=== PATIENT | female | born 1985 | race Caucasian/White ===

== ENCOUNTER 2024-12-02 18:40 | Emergency (ER) | payer OTHER, SELFPAY ==
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
[2024-12-02 18:47] VITALS: BP 129/75; PULSE 74; RESP 18; TEMP 36.1; O2SAT 99; BMI 40.3
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
--- OUTSIDE RECORDS SUMMARY | 2024-12-02 22:50 | XMS_ITS | Clinical Summary ---
Author Organization [facility] Address [address] [place] [address] Care Team Providers Care Conservation Engineer Name Role Phone Katrina Guzman Primary Care Provider [phone] Source Comments PLEASE NOTE, if this patient is a minor, it may be UNLAWFUL to discuss sensitive information that is contained in these records (such as FAMILY PLANNING, MENTAL HEALTH or SUBSTANCE ABUSE) with the minor patient's parent or other person without the patient's specific authorization.[facility] Allergies Active Allergy Reactions Criticality Noted Date Comments Mushroom Hives Medications beclomethasone (QVAR) 80 mcg/actuation inhalerIndications :ASTHMA MODERATE PERSISTENT Inhale 1 Puff into the lungs 2 (two) times daily. 1 Inhaler 2 05/06/20 13 Active theophylline (THEODUR) 300 mg 12 hr tabletIndications: ASTHMA MODERATE PERSISTENT Take 1 Tab by mouth every 12 (twelve) hours. Swallow whole. Do not crush or chew. 60 Tab 1 07/12/20 13 Active albuterol sulfate hfa (PROVENTIL,VENTOLI N,PROAIR) 90 mcg/actuation inhalerIndications :ASTHMA MODERATE PERSISTENT Inhale 2 Puffs into the lungs every 4 (four) hours as needed for shortness of breath or wheezing. 1 Inhaler 3 07/12/20 13 Active albuterol (ACCUNEB) 0.63 mg/3 mL nebulizer solutionIndication s:ASTHMA MODERATE PERSISTENT Take 3 mL by nebulization every 6 (six) hours as needed for wheezing. 30 Vial 4 07/12/20 13 Active nebulizer accessoriesIndicat ions:ASTHMA MODERATE PERSISTENT Dx. Asthma 493.90 1 Device 0 07/12/20 13 Active nebulizerIndicatio ns:ASTHMA MODERATE PERSISTENT Dx. Asthma 493.90 1 Each 0 07/12/20 13 Active nitrofurantoin, macrocrystal-monoh ydrate, (MACROBID) 100 mg capsuleIndications :UTI (lower urinary tract infection) Take 1 Cap by mouth 2 (two) times daily. 14 Cap 0 09/13/19 14 Active loratadine (CLARITIN) 10 mg tabletIndications: Seasonal allergic reaction Take 1 Tab by mouth once daily as needed for allergies. 30 Tab 2 10/12/19 14 Active fluticasone (FLONASE) 50 mcg/actuation nasal sprayIndications:A llergic rhinitis, seasonal Place 1 [place] into the nostril(s) once daily. 16 g 2 10/12/19 14 Active hydrOXYzine (ATARAX) 10 mg tabletIndications: Seasonal allergic reaction Take 1 Tab by mouth 3 (three) times daily as needed for itching. 90 Tab 2 10/12/19 14 Active olopatadine (PATANOL) 0.1 % ophthalmic solutionIndication s:Allergic conjunctivitis Place 1 Drop into both eyes 2 (two) times daily. 5 mL 2 10/12/19 14 Active metroNIDAZOLE (FLAGYL) 500 mg tabletIndications: Bacterial vaginitis Take 1 Tab by mouth 2 (two) times daily. Avoid alcohol while taking and for 72 hours following last dose. 14 Tab 0 11/16/19 14 Active Active Problems Problem Noted Date Diagnosed Date PTSD (post-traumatic stress disorder) 09/14/2013 Bipolar 2 disorder ([facility]) 05/27/2013 Nonepileptic episode: psychogenic seizure 2012 ASTHMA MODERATE PERSISTENT Allergic rhinitis, seasonal Obesity Resolved Problems Problem Noted Date Diagnosed Date Resolved Date Seizure disorder ([facility]) 02/08/2013 0 09/14/2013 Overview (09/14/2013): Found out to be psychogenic, not actual epileptic seizures Bipolar disorder ([facility]) 02/08/2013 0 09/14/2013 Immunizations Immunization Administration Dates Next Due Hep A, adult 10/27/2011 Hep B, Adult/Adol (ENERGIX/RECOMBIVAX) 2 INFLUENZA, SEASONAL, INJECTABLE 05/06/2013 PPD 05/27/2013,05/06/2013 Family History Medical History Relation Name Comments Diabetes Maternal Aunt Heart Problems Maternal Grandfather Cancer Mother leukemia Hypertension Paternal Grandfather Relation Name Status Comments Maternal Aunt Maternal Grandfather Mother Alive Paternal Grandfather Social History Tobacco Use Types Packs/Day Years Used Date Smoking Tobacco: Never Smokeless Tobacco: Never Alcohol Use Standard Drinks/Week Comments No 0 (1 standard drink = 0.6 oz pur e alcohol) Social Connections Answer Date Recorded Connectedness 0 05/06/2024 Financial Resource Strain Answer Date R ecorded Financial Resource Strain 0 2023 Stress Answer Date Recorded Stress 0 05/06/2024 Physical Activity Answer Date Recorded Physical Activity 0 05/06/2024 Food Insecurity Answer Date Recorded Food 0 05/06/2024 Transportation Needs Answer Date Record ed Transportation 0 05/06/2024 Housing Stability Answer Date Recorded Housing 0 05/06/2024 Safety and Environment Answer Date Og rded Safety 0 05/06/2024 Utilities Answer Date Recorded Utilities 0 05/06/2024 Employment Answer Date Recorded Stress 0 05/06/2024 Comments No Sex and Gender Information Value Date Recorded Sex Assigned at Not on file Legal Sex Female 11:36 AM PDT Gender Identity Not on file Sexual Orientation Not on file Last Filed Vital Signs Vital Sign Reading Time Taken Comments Blood Pressure 110/80 11/11/2013 1:15 PM EDT Pulse 73 05/07/2024 1:50 AM EDT Temperature 36.1 ??C (97 ??F) 05/07/2024 1:50 AM EDT Respiratory Rate 16 11/11/2013 1:15 PM EDT Oxygen Saturation 98% 05/07/2024 1:50 AM EDT Inhaled Oxygen Concentration - - Weight 90.3 kg (199 lb) 11/11/2013 1:15 PM EDT Height 157.5 cm (5' 2 ) 11/11/2013 1:15 PM EDT Body Mass Index 36.4 11/11/2013 1:15 PM EDT Plan of Treatment Health Maintenance Due Date Last Done Comments Anxiety Screening 1983 Diabetes Screening 1983 HPV Screening 1983 Hepatitis C Screening 1983 Lipid Screening 1983 Pap + HPV 1983 STI Counseling 1983 Tobacco Screening 1983 Relationship Safety Screening/Counseling 1998 Imm-DTaP/Tdap/Td (1 - Tdap) 2002 Imm-Hepatitis B (2 of 3 - 19 + 3-dose series) 11/24/2011 10/27/2011 Cervical Cancer Screening 09/12/2013 Pap Smear 09/12/2013 09/12/2010, 08/01/2009 Hypertension Screening (#1) 11/11/2014 Breast Cancer Screening (Mammogram) 2023 [id number] ( season) 2024 Imm-Influenza (#1) 2024 08/06/2022, 0 04/23/2020, 05/06/2013 Alcohol and Drug Screen 08/03/2024 Depression Annual Screen 08/03/2024 HIV Screening Completed 05/07/2024, 09/14/2013 Cervical Ablation/Cold-Knife Conization Discontinued Cervical Cryotherapy Discontinued Colposcopy Discontinued Endometrial Biopsy Discontinued Excision/Leep Discontinued HPV Genotyping Discontinued Vaginal Pap Discontinued Vulvoscopy Discontinued Procedures Procedure Name Priority Date/Time Associated Diagnosis Comments HIV 1/2 AG/AB COMBO Routine 05/07/2024 from Last 3 Months or Most Recently Relevant to Health Maintenance Results * HIV 1/2 AG/AB COMBO (05/07/2024) HIV-1/HIV-2 Ag/Ab HIV-1/2 Non-react cornelio [facility] Comment: The HIV Antigen (Ag)/Antibody (Ab) Combo Chemiluminescent Microparticle Immunoassay (CMIA) is used for the simultaneous detection of both the HIV-1 p24 Antigen and Antibody to HIV-1 and for the Antibody to HIV-2. 05/07/2024 05/10/2024 Elijah Meyer MD LAB - BLOOD DRAW Final Result [facility] [id number] [facility] [address] [place] [address], [place] [phone] from Last 3 Months or Most Recently Relevant to Health Maintenance Insurance [facility] PL[employer] Member Subscriber Plan / Payer (Ef fective 2013-Present) Name:Jessica Baldwin Relation to Subscriber:Self Name:Jessica Baldwin Payer ID:[id number] Group ID:[id number] Type:Medicaid Address: [facility] [address] [place] [address] Care Teams Conservation Engineer Relationship Specialty Start Date End Date Katrina Guzman PA [address] [place] [address] PCP - General 05/27/13
--- OUTSIDE RECORDS SUMMARY | 2024-12-02 22:50 | XMS_ITS | Clinical Summary ---
Author Organization [facility] Address [address] [place] [address] Care Team Providers Care Guard Immigration Name Role Phone Coleen Sidhu MD Primary Care Provider Social History Tobacco Use Types Packs/Day Years Used Date Smoking Tobacco: Never Assessed Comments Unknown Sex and Gender Information Value Date Recorded Sex Assigned at Not on file Legal Sex Female 4:12 PM EDT Gender Identity Not on file Sexual Orientation Not on file Plan of Treatment Upcoming Encounters Date Type Department Care Team (Late st Contact Info) Description 06/20/2025 11:00 AM EST Office Visit Adult Medicine [facility] [address] [place] [address] Coleen Sidhu MD [address] [place] [address] Health Maintenance Due Date Last Done Comments Breast Cancer Screening 1983 DTaP,Tdap,and Td Vaccines (1 - Tdap) 2002 Hepatitis B Vaccines (1 of 3 - 19+ 3-dose series) 2002 Cervical Cancer Screening: P ap Smear 2004 COVID-19 Vaccine ( - 2023-2 5 season) 2024 Depression Screening 10/21/2024 HIV Screening 10/21/2024 Hepatitis C Screening 10/21/2024 Social Influencers of Health Screening 10/21/2024 Influenza Vaccine (Season Ended) 2025 HIB Vaccines Aged Out No longer eligi ble based on patient's age to complete this topic HPV Vaccines Aged Out No longer eligi ble based on patient's age to complete this topic Hepatitis A Vaccines Aged Out No long er eligible based on patient's age to complete this topic IPV Vaccines Aged Out No longer eligi ble based on patient's age to complete this topic MMR Vaccines Aged Out No longer eligi ble based on patient's age to complete this topic Meningococcal ACWY Vaccine Aged Out N o longer eligible based on patient's age to complete this topic Meningococcal B Vaccine Aged Out No l onger eligible based on patient's age to complete this topic Pneumococcal Vaccine: Pediat rics (0 to 5 Years) and At-Risk Patients (6 to 64 Years) Aged Out No longer eligible b ased on patient's age to complete this topic RSV Immunization Patients Un daniel 20 months Aged Out No longer eligible b ased on patient's age to complete this topic Varicella Vaccines Aged Out No longer eligible based on patient's age to complete this topic [place] [address] [place] [address] PLAN Care Teams Guard Immigration Relationship Specialty Start Date End Date Coleen Sidhu MD [address] [place] [address] PCP - General Internal Medicine 10/06/24
[2024-12-02] MEDS: Tetracaine HCl/PF 0.5% Oph Sol 4 ML DROPS 1 DROP EYE-LEFT (23:33)
[2024-12-02] MEDS: Fluorescein Sodium STRIP 1 STRIP EYE-LEFT (23:33)
[2024-12-02 23:41] VITALS: BP 138/83; PULSE 56; RESP 16; TEMP 36.6; O2SAT 98
--- NOTE | 2024-12-02 23:54 | PC.NURSE ---
Provider to [facility] 2 for assessment.
[2024-12-03] MEDS: Acetaminophen 325 MG TABLET 650 MG PO (00:42)
[2024-12-03 00:51] VITALS: BP 138/83; PULSE 56; RESP 16; TEMP 36.6; O2SAT 98
== END 2024-12-03 00:51 | disposition home or self-care (01) ==
PROVIDERS: Emergency Provider Emergency Medicine
DX: S00.12XA Contusion of left eyelid and periocular area, initial encounter (principal); Y00.XXXA Assault by blunt object, initial encounter; Y93.89 Activity, other specified; Y92.9 Unspecified place or not applicable; Y99.9 Unspecified external cause status
CPT/HCPCS: 70450; 70486; 99284

== ENCOUNTER → 2024-12-02 18:48 | Outpatient (BNV) | payer OTHER, SELFPAY | PROVIDERS: Visit Provider Radiology Diagnostic Radiology | DX: H57.12 Ocular pain, left eye (principal); H05.222 Edema of left orbit; S09.90XA Unspecified injury of head, initial encounter; R11.0 Nausea | CPT/HCPCS: 70450; 70486 ==

== ENCOUNTER 2025-01-07 13:05 | Emergency (ER) | payer OTHER, SELFPAY ==
[2025-01-07 13:51] VITALS: BP 125/85; PULSE 59; RESP 18; TEMP 36.6; O2SAT 100; BMI 40.4
--- NOTE | 2025-01-07 13:51 | ED_ITS ---
HPI - Dental/Oral General Chief complaint: Dental/Oral Stated complaint: dental pain into ear and back of neck Time Seen by Provider: 01/07/25 13:57 Source: patient, RN notes reviewed and old records reviewed Mode of arrival: ambulatory History of Present Illness ED Provider: Lucila Damico PA-C HPI Narrative: 39-year-old female with no significant past medical history dental filling 2 months ago presenting to the ED complaining of right-sided dental pain/facial swelling x 2 weeks. denies drainage, difficulty/inability to swallow, fever, chills. Related Data Previous Rx's ?Medication ?Instructions ?Recorded amoxicillin 875 mg-potassium 1 tab PO BID 7 days #14 tabs 01/07/25 clavulanate 125 mg tablet Allergies Allergy/AdvReac Type Severity Reaction Status Date / Time mushroom Allergy Rash Verified 01/07/25 13:53 Review of Systems Review of Systems: Yes all other systems are reviewed and are negative Constitutional: Constitutional: Reports as per [facility] Past Medical History Attestation statement: The following information was validated with the patient. Source: old records reviewed Social History Social History Advance Directives: No Advance Directives Information Provided: No Physical Exam Vital Signs: Vital Signs: Last Vital Signs Temp 97.8 F 01/07/25 14:28 Pulse 59 01/07/25 14:28 Resp 18 01/07/25 14:28 BP 125/85 01/07/25 14:28 Pulse Ox 100 01/07/25 14:28 O2 Del Method Room Air 01/07/25 14:28 BMI result Body Mass Index 40.4 Const: General: cooperative, healthy appearing and no acute distress Orientation/consciousness: patient oriented x3 Limitations: no limitations HEENT: Other: Mild right-sided facial swelling. Right upper bicuspid and 1st molar with mild gingival tenderness. No gingival erythema/swelling. No fluctuance/induration. Head: Yes normal to inspection and Yes atraumatic Ears: hearing grossly normal bilaterally, external ears normal, TM's normal bilaterally and mastoids normal General nose exam: Normal external nose present Face and sinus: Yes normal facial exam Mouth: no drooling Throat: Yes posterior oropharynx normal, Yes tonsils normal, Yes uvula midline, No peritonsillar mass, No uvula laterally displaced and No uvular edema Eyes: General: appearance normal, both eyes and all related structures EOM: EOMs intact bilaterally Neck: Neck: Yes normal visual inspection and Yes no meningeal signs Resp: Effort & Inspection: normal respiratory effort, no respiratory distress and no stridor Cardio: Rate: regular rate Skin: Rashes: no rashes Wounds: no wounds Neuro: General: patient oriented x3, tone normal and no meningeal signs Cranial nerves: Yes CN's II-XII intact bilaterally Gait exam (Neuro): Normal gait present Extrem: General: Yes normal to inspection Medical Decision Making Medical Decision Making MDM Narrative: 39-year-old female with no significant past medical history dental filling 2 months ago presenting to the ED complaining of right-sided dental pain/facial swelling x 2 weeks. On exam vital signs stable, NAD, nontoxic appearing, physical exam as noted above with mild right-sided facial swelling and right- sided upper reproducible gingival tenderness without appreciable abscess or cellulitis. Uvula midline. No respiratory distress. Concern for dental infection. No drainable collection at this time. No evidence of [employer]/retropharyngeal abscess Plan: P.o. antibiotics, dentistry follow-up Please refer to course for remaining clinical decision making, interpretation of labs/imaging results, and discussions with consultants and/or family members. Results discussed with patient including worrisome signs and symptoms and strict return precautions, and when to return to the emergency department. They verbalized understanding and feel safe for discharge at this time. Differential Diagnosis Differential Diagnoses: The differential diagnosis associated with the presentation includes As above External Record Review External record reviewed: Inpatient record, Office record, Outpatient record, Prior outpatient labs, Prior outpatient radiology, Primary care record and Outside ED record Tests considered The following testing was considered but not selected: As above Prescription Management I considered prescription management with: Pain Medication and Antibiotic Chronic Conditions Patient?s care impacted by: Other Social Determinants Patient?s care significantly limited by Social Determinants of Health including: Other Social Determinant of Health Discharge Plan Discharge Clinical Impression: Dental infection Patient Disposition: Home, Self-Care Instructions: Dental Abscess (ED) Additional Instructions: Augmentin as an antibiotic please take as prescribed until completion Gargle with warm saltwater Take Tylenol and ibuprofen for pain If symptoms persist or worsen you have increasing facial swelling, difficulty or inability to swallow, he is pus in your mouth or have fever return to the ED Please call your dentist for close follow up [facility] [address] [place] [address] Prescriptions: New amoxicillin-pot clavulanate 875-125 mg tablet 1 tab PO BID 7 Days Qty: 14 0RF Referrals: Physician,Unknown J [Physician] - Interventions: ED Discharge Assessment Last Done: 01/07/25 14:28 Discharge Date/Time: 01/07/25 14:28 Print Language: Syrian
[2025-01-07 14:28] VITALS: BP 125/85; PULSE 59; RESP 18; TEMP 36.6; O2SAT 100
== END 2025-01-07 14:28 | disposition home or self-care (01) ==
PROVIDERS: Emergency Provider Emergency Medicine
DX: K08.89 Other specified disorders of teeth and supporting structures (principal)
CPT/HCPCS: 99282; 99283; 99284

== ENCOUNTER → 2025-02-14 21:55 | Outpatient (BNV) | payer MEDICAID, SELFPAY | PROVIDERS: Visit Provider Radiology Diagnostic Radiology | DX: R05.9 Cough, unspecified (principal) | CPT/HCPCS: 71046 ==

== ENCOUNTER 2025-02-14 22:36 | Emergency (ER) | payer OTHER, SELFPAY ==
--- NOTE | ~2025-02-14 | XR_ITS ---
CLINICAL HISTORY: cough 2 view chest x-ray Comparison: None provided Findings: Lungs are clear without acute infiltrates. No pneumothorax. Heart size normal. No acute bony abnormalities. Impression: No acute processes This document has been electronically signed by: Fernando Shea MD on 02/14/2025 23:21:23
[2025-02-14 22:39] VITALS: BP 134/85; PULSE 85; RESP 20; TEMP 36.8; O2SAT 98; BMI 39.6
[2025-02-14 23:02] LABS: IDNOW Serial# 6674DD1D; Strep A Nucleic Acid Negative (Negative)
[2025-02-14 23:33] LABS: Resp Syncy Virus RNA Qual PCR NEGATIVE (Negative); SARS COV2 PCR INHOUSE NEGATIVE (Negative)
--- NOTE | 2025-02-15 00:42 | ED.URI ---
HPI - URI/Sore Throat General Chief Complaint: Upper Respiratory Symptoms Stated Complaint: Difficulty breathing/Cough Time Seen by Provider: 02/15/25 00:37 Source: patient Mode of arrival: ambulatory Limitations: no limitations History of Present Illness ED Provider: Dr. Jeni Hay HPI Narrative: Patient comes to the emergency room complaining of 3-4 days of cough, subjective fever, chills. Patient states that at work she was coughing a lot and they sent her to the emergency room to get checked out. Patient denies shortness of breath. Patient states that she has chest wall pain from coughing so much. Patient complaining of burning sensation with swallowing, but no difficulty swallowing. Related Data Previous Rx's ?Medication ?Instructions ?Recorded amoxicillin 875 mg-potassium 1 tab PO BID 7 days #14 tabs 01/07/25 clavulanate 125 mg tablet benzonatate 100 mg capsule 100 mg PO TID PRN cough #12 caps 02/15/25 Allergies Allergy/AdvReac Type Severity Reaction Status Date / Time mushroom Allergy Rash Verified 02/14/25 22:43 Review of Systems Review of Systems: Constitutional : No Weight loss, No Fever, No Chills, No Night Sweats, No Fatigue, No Malaise ENT/Mouth : No Hearing loss, No Ear Pain, No Nasal Congestion, No Sinus Pain, No Hoarseness, complaining of burning sensation with coughing in the throat, No Rhinorrhea, No Swallowing Difficulty Eyes: No Eye Pain, No Swelling, No Redness, No Foreign Body, No Discharge, No Vision Changes Cardiovascular : No Chest Pain, complaining of chest wall pain with coughing, no orthopnea no edema Respiratory : complaining of productive cough, no wheezing or shortness of breath Gastrointestinal : No Nausea, No Vomiting, No Diarrhea, No Constipation, No abdominal Pain, No Hematochezia, No Melena Genitourinary : no irregular bleeding, No Dysuria, No Urinary Frequency, No Hematuria, No Urinary Incontinence, No Urgency, No Flank Pain, No Urinary Flow Changes, No Hesitancy Musculoskeletal : No joint pain, No Myalgias, No Joint Swelling Skin : No Skin Lesions, No rash Neuro : No Weakness, No Numbness, No Paresthesias, No Loss of Consciousness, No Dizziness, No Headache Psych : No Anxiety/Panic, No Depression, No SI/HI/AH/VH, No Social Issues, Heme/Lymph: No Bruising, No Bleeding,No Lymphadenopathy Endocrine : No Polyuria, No Polydipsia, No Temperature Intolerance [facility] Social History Social History Advance Directives: No Do you have a plan to hurt others: No Plan Physical Exam Vital Signs: Vital Signs: Last Vital Signs Temp 98.2 F 02/14/25 22:39 Pulse 85 02/14/25 22:39 Resp 20 02/14/25 22:39 BP 134/85 02/14/25 22:39 Pulse Ox 98 02/14/25 22:39 O2 Del Method Room Air 02/14/25 22:39 BMI result Body Mass Index 39.6 Const: Other: Appearance: Alert. Oriented X3. No acute distress. Eyes: Pupils equal, round and reactive to light. ENT: Erythematous oropharynx, no exudates, no obvious abscess visualized, midline uvula, normal palatine tonsils Neck: Normal inspection. Neck supple. No lymph nodes noted. No crepitus CVS: Normal heart rate and rhythm. Pulses normal. Normal S1 and S2 Respiratory: No respiratory distress. Breath sounds normal. No Wheezing. No rales Abdomen: Soft and nontender. No rigidity. No distention. Skin: Skin warm and dry. Normal skin color. Normal skin turgor. Extremities: No lower extremity edema. No Lacerations. No Rash Neuro: Oriented X 3. No motor deficit. No sensory deficit. Moving all extremities. No slurred speech. CN 2 through 12 grossly intact Psych: calm, cooperative, normal affect Medical Decision Making Medical Decision Making [facility] Narrative: My interpretation of labs: Patient tested negative for influenza RSV and COVID, negative for strep Chest x-ray negative for pneumonia. Patient likely has a viral URI causing cough. Lab Data [facility] Lab Attestation statement: I reviewed the patient's lab results. Labs: Lab Results 02/14/25 Range/Units 22:49 Influenza Type A (PCR) NEGATIVE (Negative) Influenza Type B (PCR) NEGATIVE (Negative) RSV RNA Qual (PCR) NEGATIVE (Negative) SARS-CoV-2 RNA (RT-PCR) NEGATIVE (Negative) S. pyogenes GrpA BRIAN Negative (Negative) Independent Interpretation I performed an independent interpretation of an: Plain X-Ray Radiology Impression Discussion of test interpretation with radiology: I have reviewed the radiologist's reading. Radiologist Impression: Lungs are clear without acute infiltrates. No pneumothorax. Heart size normal. No acute bony abnormalities Discharge Plan Discharge Clinical Impression: Viral URI with cough Patient Disposition: Home, Self-Care Instructions: Acute Bronchitis (ED) Additional Instructions: Please follow-up with your primary care physician tomorrow. If you have any worsening or new symptoms, please return to the emergency room or call 911 Prescriptions: New benzonatate 100 mg capsule 100 mg PO TID PRN (Reason: cough) Qty: 12 0RF No Action amoxicillin-pot clavulanate 875-125 mg tablet 1 tab PO BID 7 Days Qty: 14 0RF Stand Alone Forms: Work/School Release Print Language: Hebrew
[2025-02-15 00:57] VITALS: BP 144/89; PULSE 89; RESP 18; TEMP 36.7; O2SAT 97
== END 2025-02-15 00:58 | disposition home or self-care (01) ==
PROVIDERS: Emergency Provider Emergency Medicine
DX: J06.9 Acute upper respiratory infection, unspecified (principal); R06.02 Shortness of breath; R05.9 Cough, unspecified; R50.9 Fever, unspecified; Z03.818 Encounter for observation for suspected exposure to other biological agents ruled out
CPT/HCPCS: 71046; 87637; 87651; 99282; 99283

== ENCOUNTER 2025-03-08 18:22 | Emergency (ER) | payer OTHER, SELFPAY ==
--- NOTE | ~2025-03-08 | XR_ITS ---
CLINICAL HISTORY: sob, cough 2 view chest x-ray Comparison: Chest x-ray from 02/14/2025. Findings: No consolidation or effusion. No pneumothorax. Mild/minimal atelectasis. Imaged mediastinum and imaged osseous structures appear unchanged. IMPRESSION: No consolidation. This document has been electronically signed by: Dejan Dixon MD on 03/08/2025 19:14:40
--- NOTE | 2025-03-08 18:25 | ED_ITS ---
HPI - General Adult General Chief complaint: Upper Respiratory Symptoms Stated complaint: hard time breathing/ coughing/ asthma Time Seen by Provider: 03/09/25 00:04 Source: patient Mode of arrival: ambulatory Limitations: no limitations History of Present Illness ED Provider: Dr. Jeni Hay HPI narrative: Patient comes to the emergency room complaining of coughing, wheezing. Patient admits that she has smoke cigarettes but has not been able to do so for the last day or 2 due to her URI symptoms. Patient denies fever or chills. Earlier today when patient arrived, seems that she was wheezing, patient was given a nebulization treatment. Patient reports that she ran out of albuterol a few days ago Related Data Previous Rx's ?Medication ?Instructions ?Recorded amoxicillin 875 mg-potassium 1 tab PO BID 7 days #14 t abs 01/07/25 clavulanate 125 mg tablet benzonatate 100 mg capsule 100 mg PO TID PRN cough #12 caps 02/15/25 albuterol sulfate 90 mcg/actuation 2 puff inhalation Q 4-6H PRN 03/09/25 aerosol inhaler (Ventolin HFA) shortness of breath or wheezing #8.5 grams codeine 10 mg-guaifenesin 100 mg/5 10 ml PO Q4-6H PRN cough #120 mL 03/09/25 mL oral liquid prednisone 50 mg tablet 50 mg PO DAILY #4 tabs 03/09 Allergies Allergy/AdvReac Type Severity Reaction Status Date / Time mushroom Allergy Rash Verified 03/08/25 18:29 Review of Systems Review of Systems: Constitutional : No Weight loss, No Fever, No Chills, No Night Sweats, No Fatigue, No Malaise ENT/Mouth : No Hearing loss, No Ear Pain, No Nasal Congestion, No Sinus Pain, No Hoarseness, No sore throat, No Rhinorrhea, No Swallowing Difficulty Eyes: No Eye Pain, No Swelling, No Redness, No Foreign Body, No Discharge, No Vision Changes Cardiovascular : No Chest Pain, No SOB, No Dyspnea on Exertion, No Orthopnea, No Edema, No Palpitations Respiratory : Complaining of cough, wheezing, shortness of breath Gastrointestinal : No Nausea, No Vomiting, No Diarrhea, No Constipation, No abdominal Pain, No Hematochezia, No Melena Genitourinary : no irregular bleeding, No Dysuria, No Urinary Frequency, No Hematuria, No Urinary Incontinence, No Urgency, No Flank Pain, No Urinary Flow Changes, No Hesitancy Musculoskeletal : No joint pain, No Myalgias, No Joint Swelling Skin : No Skin Lesions, No rash Neuro : No Weakness, No Numbness, No Paresthesias, No Loss of Consciousness, No Dizziness, No Headache Psych : No Anxiety/Panic, No Depression, No SI/HI/AH/VH, No Social Issues, Heme/Lymph: No Bruising, No Bleeding,No Lymphadenopathy Endocrine : No Polyuria, No Polydipsia, No Temperature Intolerance [facility] Past Medical History Medical History (Updated 03/09/25 @ 05:38 by Jeni Hay MD) Asthma Social History Social History Smoked in Last 30 Days: Yes Use of substances other than those prescribed or required for medical reasons: No Advance Directives: No Advance Directives Information Provided: Yes Do you have a plan to hurt others: No Plan Patient : No Physical Exam ED Exam Exam: Appearance: Alert. Oriented X3. No acute distress. Eyes: Pupils equal, round and reactive to light. ENT: Pharynx normal. Neck: Normal inspection. Neck supple. No lymph nodes noted. No crepitus CVS: Normal heart rate and rhythm. Pulses normal. Normal S1 and S2 Respiratory: Oxygen saturation 96% on room air, actively coughing, bilateral rales, no crackles, very mild occasional wheezing Abdomen: Soft and nontender. No rigidity. No distention. Skin: Skin warm and dry. Normal skin color. Normal skin turgor. Extremities: No lower extremity edema. No Lacerations. No Rash Neuro: Oriented X 3. No motor deficit. No sensory deficit. Moving all extremities. No slurred speech. CN 2 through 12 grossly intact Psych: calm, cooperative, normal affect Vital Signs: Vital Signs - 24 hr 03/08/25 18:26 03/08/25 18:53 03/08/25 23:20 Temperature 98.9 F 98.1 F Pulse Rate 93 79 92 Respiratory Rate 26 H 22 H 22 H Blood Pressure 132/88 136/80 Pulse Oximetry 96 96 Oxygen Delivery Method Room Air Room Air 03/09/25 00:38 03/09/25 01:13 03/09/25 01:20 Temperature 98.2 F Pulse Rate 92 83 Respiratory Rate 20 21 H Blood Pressure 121/64 Pulse Oximetry 98 98 Oxygen Delivery Method Room Air Room Air 03/09/25 01:33 03/09/25 05:33 Temperature Pulse Rate 78 Respiratory Rate 23 H Blood Pressure Pulse Oximetry 94 96 Oxygen Delivery Method Room Air BMI result Body Mass Index 39.1 Course Course Course Narrative: This is a Rapid Medical Examination (RME) performed by Danni Abdi PA-C in triage. Full HPI, ROS, assessment and treatment plan per primary provider in the Main ED. Hx: 39 yo F hx asthma here for difficulty breathing since yesterday. reports using her inhaler while at work today, unknown how many pumps she took and then ran out of it. feels diaphoretic. PE/vitals: increased effort of breathing, bronchospastic cough, lungs with diff use expiratory rhonchi. Plan: ekg, cxr, viral swabs, ed bronch protocol ordered Medications Administered Discontinued Medications Generic Name Dose Route Start Last Admin Trade Name Freq PRN Reason Stop Dose Admin Benzonatate 100 mg 03/09/25 00:10 03/09/25 01:04 Benzonatate 100 Mg Capsule PO 03/09/25 00:11 100 mg ONCE ONE Administration Albuterol Sulfate 5 mg/ 0 mg 03/08/25 18:43 03/08/25 18:47 Albuterol/Ipratropium 3 ml INHALE 03/08/25 18:44 1 each ONCE ONE Administration Albuterol Sulfate 2.5 mg/ 0 mg 03/09/25 00:31 03/09/25 00:37 Albuterol/Ipratropium 3 ml INHALE 03/09/25 00:32 1 dose ONCE ONE Administration Magnesium Sulfate 2 gm in 50 mls @ 25 mls/hr 03/09/25 00:10 03/09/25 03:02 Magnesium Sulfate/H2o IV 03/09/25 02:09 Infused ONCE ONE Infusion Methylprednisolone Sodium Succinate 125 mg 03/09/25 00:10 03/09/25 00:56 Methylprednisolone Sod Succ 125 Mg/2 Ml Vial IVPUSH 03/09/25 00:11 125 mg ONCE ONE Administration Medical Decision Making Medical Decision Making MDM Narrative: My interpretation of labs: Negative for influenza, COVID and RSV. Chest x-ray negative for any consolidations. Earlier today, patient received a nebulization treatment. Patient states that she is still coughing quite a bit, requesting another nebulization treatment. Patient's oxygen saturation 96% on room air, barely any wheezing Patient receiving IV Solu-Medrol, magnesium and nebulization treatment. Patient admits that she is still smoking. Discussed smoking cessation with the patient. Since seems to have recurrent bronchitis episodes. Discussed with the patient that eventually smoking may lead to COPD/chronic bronchitis. Patient was ambulated in the ED, oxygen saturation steady in the 90s. Differential Diagnosis Differential Diagnoses: The differential diagnosis associated with the presentation includes (Viral URI, undiagnosed chronic lung disease, asthma exacerbation) Admission/Observation Consideration of admission/observation: Escalation of care including admission/observation considered (Given patient's symptoms, observation was considered) Lab Data MDM Lab Attestation statement: I reviewed the patient's lab results. Labs: Lab Results 03/08/25 Range/Units 21:11 Influenza Type A (PCR) NEGATIVE (Negative) Influenza Type B (PCR) NEGATIVE (Negative) RSV RNA Qual (PCR) NEGATIVE (Negative) SARS-CoV-2 RNA (RT-PCR) NEGATIVE (Negative) Independent Interpretation I performed an independent interpretation of an: Plain X-Ray Radiology Impression Discussion of test interpretation with radiology: I have reviewed the radiologist's reading. Radiologist Impression: No consolidation or effusion. No pneumothorax. Mild/minimal atelectasis. Imaged mediastinum and imaged osseous structures appear unchanged. IMPRESSION: No consolidation. Critical Care Time Critical Care Time Critical Care Time: Yes Total Critical Care Time: 40 Attestation: I have personally provided critical care time. Time includes review of lab data, radiology results, discussion with consultants, and monitoring for potential decompensation. Intervention performed as documented. Discharge Plan Discharge Clinical Impression: Bronchitis Patient Disposition: Home, Self-Care Instructions: Acute Bronchitis (ED) Additional Instructions: Please follow-up with your primary care physician tomorrow. If you have any worsening or new symptoms, please return to the emergency room or call 911 Prescriptions: New albuterol sulfate [Ventolin HFA] 90 mcg/actuation HFA aerosol inhaler 2 puff inhalation Q4-6H PRN (Reason: shortness of breath or wheezing) Qty: 8.5 0RF prednisone 50 mg tablet 50 mg PO DAILY Qty: 4 0RF codeine-guaifenesin 10-100 mg/5 mL liquid 10 ml PO Q4-6H PRN (Reason: cough) Qty: 120 0RF No Action amoxicillin-pot clavulanate 875-125 mg tablet 1 tab PO BID 7 Days Qty: 14 0RF benzonatate 100 mg capsule 100 mg PO TID PRN (Reason: cough) Qty: 12 0RF Stand Alone Forms: Work/School Release Print Language: Salvadorean
[2025-03-08 18:26] VITALS: BP 132/88; PULSE 93; RESP 26; TEMP 37.2; O2SAT 96; BMI 39.1
--- NOTE | 2025-03-08 18:27 | ECG_ITS ---
Test Reason : SOB Blood Pressure : */* mmHG Vent. Rate : 80 BPM Atrial Rate : 80 BPM P-R Int : 152 ms QRS Dur : 82 ms QT Int : 368 ms P-R-T Axes : 17 -24 18 degrees QTcB Int : 424 ms Normal sinus rhythm Minimal voltage criteria for LVH, may be normal variant ( R in aVL ) Borderline ECG No previous ECGs available Referred By: Cyn Abdi Electronically Signed By: TRISTAN RODRIGUEZ
[2025-03-08] MEDS: Albuterol Sulfate 5 MG, Albuterol/Iprat 2.5/0.5MG 3 ML 3 ML INHALE (18:47)
[2025-03-08 18:53] VITALS: PULSE 79; RESP 22; O2SAT 99
[2025-03-08 21:57] LABS: Resp Syncy Virus RNA Qual PCR NEGATIVE (Negative); SARS COV2 PCR INHOUSE NEGATIVE (Negative)
[2025-03-08 23:20] VITALS: BP 136/80; PULSE 92; RESP 22; TEMP 36.7; O2SAT 96
--- OUTSIDE RECORDS SUMMARY | 2025-03-08 23:57 | XMS_ITS | Clinical Summary ---
Author Organization [facility] ity Address [address] [place] [address] Care Team Providers Care Motel Manager Name Role Phone Coleen Sidhu MD Primary [...] 11:00 AM EST Office Visit Adult Medicine [facility] [place], [place] [address] [place] [address] Coleen Sidhu MD [address] [place] [address] Health Maintenance Due Date Last Done Comments Breast Cancer Screening 1983 DTaP,Tdap,and Td Vaccines (1 - Tdap) 2002 Hepatitis B Vaccines (1 of 3 - 19+ 3-dose series) 2002 Cervical Cancer Screening: P ap Smear 2004 COVID-19 Vaccine ( - 2023-2 5 season) 2024 Depression Screening 08/03/2024 HIV Screening 10/21/2024 Hepatitis C Screening 10/21/2024 Social Influencers of Health Screening 10/21/2024 Influenza Vaccine (#1) 2025 HIB Vaccines Aged Out No longer [...] 5 Years) and At-Risk Patients (6 to 49 Years) Aged Out No longer eligible b ased on patient's age to complete this topic RSV Immunization Patients Un danile 20 months Aged Out No longer eligible b ased on patient's age to complete this topic Varicella Vaccines Aged Out No longer eligible based on patient's age to complete this topic [place] [address] [address] PLAN Care Teams Motel Manager Relationship Specialty Start Date End Date Coleen Sidhu MD [address] [place] [address] PCP - General Internal Medicine 10/06/24
--- OUTSIDE RECORDS SUMMARY | 2025-03-08 23:57 | XMS_ITS | Clinical Summary ---
Author Organization [facility] Address [address] [place] [address] Care Team Providers Care Access Spec Name Role Phone Katrina Guzman Primary Care Provider [phone] Source Comments PLEASE NOTE, if this patient [...] nasal sprayIndications:A llergic rhinitis, seasonal Place 1 [place] into the nostril(s) once daily. 16 g [...] (post-traumatic stress disorder) 09/14/2013 Bipolar 2 disorder ([facility]) 05/27/2013 Nonepileptic episode: psychogenic seizure 2012 ASTHMA MODERATE PERSISTENT Allergic rhinitis, seasonal Obesity Resolved Problems Problem Noted Date Diagnosed Date Resolved Date Seizure disorder ([facility]) 02/08/2013 09/14/2013 Overview (09/14/2013): Found out to be psychogenic, not actual epileptic seizures Bipolar disorder ([facility]) 02/08/2013 09/14/2013 Immunizations Immunization Administration Dates Next Due Hep A, adult 10/27/2011 Hep B, Adult/Adol (LEPERXS-O-DWFFN/RECOMBIVAX-AD ULT) 10/27/2011 INFLUENZA, SEASONAL, INJECTABLE 05/06/2013 PPD 05/27/2013,05/06/2013 Family [...] 71 05/07/2024 1:50 AM EDT Temperature 36.1 C (97 F) 05/07/2024 1:50 AM EDT Respiratory Rate 16 [...] (#1) 11/11/2014 Breast Cancer Screening (Mammogram) 2023 [id number] ( season) 2024 Alcohol and Drug Screen 08/03/2024 Depression Annual Screen 08/03/2024 Imm-Influenza (#1) 2025 08/06/2022, 0 04/23/2020, 05/06/2013 HIV Screening Completed 05/07/2024, 09/14/2013 Cervical Ablation/Cold-Knife [...] Final Result [facility] [id number] [facility] [address] [place] [address], [place] [phone] from Last 3 Months or Most Recently Relevant to Health Maintenance Insurance [facility] [employer] Member Subscriber Plan / Payer (Ef fective 2013-Present) Name:Jessica Baldwin Relation to Subscriber:Self Name:Jessica Baldwin Payer ID:[id number] Group ID:[id number] Type:Medicaid Address: [facility] [address] [place] [address] Care Teams Access Spec Relationship Specialty Start Date End Date Katrina Guzman PA [address] [place] [address] PCP - General 05/27/13
[2025-03-09] VITALS (7 sets, daily range): BP systolic 121–136; BP diastolic 64–71; PULSE 78–92; RESP 17–23; TEMP 36.8; O2SAT 94–98
[2025-03-09] MEDS: Albuterol Sulfate 2.5 MG, Albuterol/Iprat 2.5/0.5MG 3 ML 3 ML INHALE (00:37)
[2025-03-09] MEDS: Magnesium Sulfate/H2O 2 GM/50 ML PIGGYBACK IV (00:56)
--- NOTE | 2025-03-09 05:33 | PC.NURSE ---
ambulation trial performed - SPO2 - 96% at rest as well as w/ exertion. pt reports increased sob. pt assisted back into bed w/o difficulty. no apparent respiratory distress. no sob/wob noted. respirations even/unlabored. plan of care ongoing. call moore placed within reach.
== END 2025-03-09 06:13 | disposition home or self-care (01) ==
PROVIDERS: Physician Assistant Medical; Emergency Provider Emergency Medicine
DX: J20.9 Acute bronchitis, unspecified (principal); J45.909 Unspecified asthma, uncomplicated; Z72.0 Tobacco use
CPT/HCPCS: 71046; 87637; 93005; 94640; 96365; 96366; 96375; 99284; 99285; J2919; J3475

== ENCOUNTER → 2025-03-08 18:26 | Outpatient (BNV) | payer OTHER, SELFPAY | PROVIDERS: Visit Provider Radiology Neuroradiology | DX: R06.02 Shortness of breath (principal); R05.9 Cough, unspecified | CPT/HCPCS: 71046 ==

== ENCOUNTER → 2025-03-08 18:27 | Outpatient (BNV) | payer OTHER, SELFPAY | PROVIDERS: Emergency Provider Emergency Medicine; Visit Provider Internal Medicine | DX: R06.02 Shortness of breath (principal) | CPT/HCPCS: 93010 ==